=== PATIENT | female | born 1980 | race Caucasian/White ===

== ENCOUNTER 2024-07-02 12:13 | Emergency (ER) | payer SELFPAY | END 2024-07-02 14:11 | disposition home or self-care (01) | LOC: MW.ED 12:13 | DX: J18.9 Pneumonia, unspecified organism (principal); F17.210 Nicotine dependence, cigarettes, uncomplicated; Z86.19 Personal history of other infectious and parasitic diseases; Z88.0 Allergy status to penicillin; Z79.51 Long term (current) use of inhaled steroids; Z79.899 Other long term (current) drug therapy | CPT/HCPCS: 71046; 87428; 96374; 99283; J1100 ==